=== PATIENT | female | born 1935 | race Caucasian/White ===

== ENCOUNTER 2022-01-14 19:18 | Inpatient (IN) | payer MEDICARE, OTHER ==
[~2022-01-14] VITALS: Ht 149.9 cm; Wt 64.9 kg
--- NOTE | 2022-01-14 19:00 | NUR ---
Admitted patient in ARU unit, patient alert to name, speak Arminian but understand simple Sammarinese, daughter at bedside, daughter requesting to see the medication list from [facility], and daughter picked and chose only medication that the patient taking a home, told daughter we have to notify MD on her request. Patient has a nice cath and will be discontinue tomorrow in morning, also patient has multiple bruise healing stage bruises, some from IV sites but no open wound, patient kept clean and dry, call light within reach.
[2022-01-14 20:46] VITALS: BP 131/48
[2022-01-14] MEDS ORDERED: QUET25TA PO (21:18)
[2022-01-14] MEDS ORDERED: AMAN100T PO (21:18)
[2022-01-14] MEDS ORDERED: MAGN400C PO (21:18)
[2022-01-14] MEDS ORDERED: BISA10SU61 RC (21:18)
[2022-01-14] MEDS ORDERED: MAG355OR18 PO (21:18)
[2022-01-14] MEDS ORDERED: PRAM1TAB3 PO (21:18)
[2022-01-14] MEDS ORDERED: MAGN400O6 PO (21:18)
[2022-01-14] MEDS ORDERED: ACET-2154 PO (21:18)
[2022-01-14] MEDS ORDERED: FLUC200T PO (21:18)
[2022-01-14] MEDS ORDERED: CALC1TAB95 PO (21:18)
[2022-01-14] MEDS ORDERED: ASPI-1420 PO (21:18)
[2022-01-14] MEDS ORDERED: CARB-35 PO (21:18)
[2022-01-14] MEDS ORDERED: POLY17PO4 PO (21:18)
[2022-01-14] MEDS ORDERED: ATOR20TA PO (21:35)
--- NOTE | 2022-01-14 21:45 | NUR ---
Dorota Infection disease CREDIT BALANCE SPECIALIST came and gave instructions to discontinue Zosyn IV and to continue Diflucan po for 5 days only. Daughter was notified by Dorota.
--- NOTE | 2022-01-14 23:00 | NUR ---
Dr Jesús huang the Bp meds requested by daughter, Wernervasc, and Losartan.
[2022-01-14] MEDS ORDERED: MAG HYDROX/AL HYDROX/SIMETH 30 ML LIQUID UDC PO PRN (23:15)
[2022-01-14] MEDS ORDERED: VALS1TAB2 PO (23:58)
[2022-01-14] MEDS ORDERED: GABA100C PO (23:58)
[2022-01-14] MEDS ORDERED: SENN-18 PO (23:58)
[2022-01-14] MEDS ORDERED: CARV12.5 PO (23:58)
[2022-01-15 04:10] VITALS: BP 141/49
--- NOTE | 2022-01-15 06:42 | NUR ---
Patient asleep but arousable, no complain of pain, rendered good erlin care, f/c discontinue as ordered, call light within reach. cont to monitor.
[2022-01-15 07:22] LABS: MEAN CORPUSCULAR HEMOGLOBIN 31.8 uug (24.7-32.8); MEAN CORPUSCULAR VOLUME 93.3 fL (75.5-95.3); PLATELET COUNT (AUTO) 193 K/uL (179-408)
[2022-01-15 07:30] VITALS: BP 127/40
[2022-01-15 07:43] LABS: CREATININE 0.8 mg/dL (0.6-1.3); MAGNESIUM 1.9 mg/dL (1.8-2.4); PHOSPHOROUS 3.4 mg/dL (2.5-4.9); POTASSIUM 3.7 mmol/L (3.5-5.1)
[2022-01-15] MEDS: CALCIUM CARB/VITAMIN D 600-400 MG TABLET PO SCH (08:47)
[2022-01-15] MEDS: CARBIDOPA/LEVODOPA 25-100MG TABLET PO SCH ×3 (08:47→21:56)
[2022-01-15] MEDS: PRAMIPEXOLE 1 MG TABLET PO SCH ×2 (08:48→18:07)
[2022-01-15] MEDS: FLUCONAZOLE 200 MG TABLET PO SCH (08:48)
[2022-01-15] MEDS: ASPIRIN EC 81 MG TABLET.DR PO SCH (08:48)
[2022-01-15] MEDS: AMANTADINE HCL 100 MG CAPSULE PO SCH (08:48)
[2022-01-15] MEDS: MIRALAX 17 GM POWD.PACK PO SCH (08:49)
[2022-01-15] MEDS: MAGNESIUM OXIDE 400 MG TABLET PO SCH (08:49)
[2022-01-15] MEDS ORDERED: CARBIDOPA/LEVODOPA 25-100MG TAB.RAPDIS PO SCH (09:00)
[2022-01-15] MEDS ORDERED: LOSARTAN POTASSIUM 50 MG TABLET PO SCH (09:00)
[2022-01-15] MEDS ORDERED: LOSA50TA39 PO (12:35)
[2022-01-15] MEDS ORDERED: AMLO-212 PO (14:06)
[2022-01-15] MEDS ORDERED: SITA50TA PO (14:06)
[2022-01-15] MEDS ORDERED: PIPE3.3710 IV (14:06)
[2022-01-15] MEDS ORDERED: MIRA50TA PO (14:06)
--- NOTE | 2022-01-15 14:36 | NUR ---
Med. Surg: Nursing Notes: Patient is cooperative with nursing care, compliant with physical therapy, following staff directions, ambulatory with fww and assistance, on fall precautions, continue to monitor for safety, continue with treatment plan.
[2022-01-15 16:00] VITALS: BP 147/55
[2022-01-15] MEDS: AMLODIPINE 5 MG TABLET PO SCH (18:07)
--- NOTE | 2022-01-15 19:00 | NUR ---
Patient awake, daughter at bedside, did bladder scan and result is 123 on the bladder, patient refused to urinate before scanning of the bladder, instructed daughter to encourage mother to drink more fluids as tolerate, cont to monitor.
[2022-01-15 20:00] VITALS: BP 138/49
[2022-01-15] MEDS: QUETIAPINE FUMARATE 25 MG TABLET PO SCH (21:55)
[2022-01-15] MEDS: ATORVASTATIN 20 MG TABLET PO SCH (21:55)
[2022-01-15] MEDS: LOSARTAN POTASSIUM 50 MG TABLET PO SCH (21:56)
[2022-01-15] MEDS: CARVEDILOL 12.5 MG TABLET PO SCH (21:57)
[2022-01-15] MEDS: GABAPENTIN 100 MG CAPSULE PO SCH (21:59)
--- NOTE | 2022-01-15 23:48 | NUR ---
Patient attempts to climb out of bed, assisted to the bathroom able to urinate with moderate amount of yellow color urine, assisted with erlin care, assisted back to bed, frequent visual check, cont to monitor.
[2022-01-16] MEDS: CARBIDOPA/LEVODOPA 25-100MG TABLET PO SCH ×7 (01:30→20:03)
--- NOTE | 2022-01-16 01:30 | NUR ---
Patient refused sinemet medications, gets agitated, yells and screams, reorient patient about her medications, but refused, cont to monitor.
[2022-01-16 04:00] VITALS: BP 127/52
--- NOTE | 2022-01-16 06:28 | NUR ---
Patient assisted to toilet for bladder elimination, did bladder scan resulted 263 cc, cont to monitor.
[2022-01-16 07:50] VITALS: BP 107/45
[2022-01-16] MEDS: CALCIUM CARB/VITAMIN D 600-400 MG TABLET PO SCH (08:41)
[2022-01-16] MEDS: LOSARTAN POTASSIUM 50 MG TABLET PO SCH ×2 (08:41→08:56)
[2022-01-16] MEDS: CARVEDILOL 12.5 MG TABLET PO SCH ×2 (08:42→08:56)
[2022-01-16] MEDS: GABAPENTIN 100 MG CAPSULE PO SCH ×2 (08:42→17:48)
[2022-01-16] MEDS: ASPIRIN EC 81 MG TABLET.DR PO SCH (08:42)
[2022-01-16] MEDS: PRAMIPEXOLE 1 MG TABLET PO SCH ×2 (08:42→17:48)
[2022-01-16] MEDS: MYRBETRIQ 50 MG PO SCH (08:50)
[2022-01-16] MEDS: AMANTADINE HCL 100 MG CAPSULE PO SCH (08:50)
[2022-01-16] MEDS: [UNRECOGNIZED DRUG - OTHER] PO SCH (08:50)
[2022-01-16] MEDS: FLUCONAZOLE 200 MG TABLET PO SCH (08:50)
[2022-01-16] MEDS: MAGNESIUM OXIDE 400 MG TABLET PO SCH (08:51)
[2022-01-16] MEDS ORDERED: MYRBETRIQ 50 MG PO SCH (09:00)
[2022-01-16] MEDS ORDERED: [UNRECOGNIZED DRUG - OTHER] PO SCH (09:00)
[2022-01-16] MEDS ORDERED: Medication Not On Formulary EA (Mirabegron (Myrbetriq) 50 MG) PO SCH (09:00)
[2022-01-16] MEDS: MIRALAX 17 GM POWD.PACK PO SCH (09:14)
--- NOTE | 2022-01-16 13:32 | NUR ---
INTERDISCIPLINARY TEAM CONFERENCE
[2022-01-16 15:50] VITALS: BP 109/40
--- NOTE | 2022-01-16 16:59 | NUR ---
0730-Rec'd patient in bed, awake, able to answer short/simple questions, patient in no acute respiratory distress, on R/A and dannie well. No c/o pain. Bed at low position, bed alarm on. Call light at reach. 0900-Scheduled/due medications administered as ordered, no ASE noted, oral fluids taken well. CG at bedside. 0930-Patient was assisted to use the restroom and voided with no difficulties, patient denied bladder discomfort. Continues on oral atb for uti, no hematuria or foul urine odor. 0950-Bladder scan done to check urinary residual and obtained 116cc result. bladder is soft and non distended. Patient denies any discomfort. 1100-Assisted patient with ADLs and as needed, care provided at routine intervals. Routine rounds and frequent visual checks done. 0320PM-assisted patient to the restroom and patient had a BM, soft formed and voided. 3:55pm-Bladder scan done with 135cc, patient with no c/o bladder discomfort. 5:50PM-Assisted to use the restroom and voided with no difficulties.
[2022-01-16] MEDS: AMLODIPINE 5 MG TABLET PO SCH ×2 (17:50→17:51)
[2022-01-16 20:00] VITALS: BP 111/62
[2022-01-16] MEDS: ATORVASTATIN 20 MG TABLET PO SCH (20:44)
[2022-01-16] MEDS: QUETIAPINE FUMARATE 25 MG TABLET PO SCH (20:44)
--- NOTE | 2022-01-16 21:40 | NUR ---
Bladder scan for post void residual done with result 43cc, no c/o blader discomfort.
[2022-01-17] MEDS: CARBIDOPA/LEVODOPA 25-100MG TABLET PO SCH ×7 (00:14→23:31)
--- NOTE | 2022-01-17 04:00 | NUR ---
Assisted to the bathroom, voided freely without any discomfort. Post void BS result 236 ml.
[2022-01-17 04:40] VITALS: BP 120/52
--- NOTE | 2022-01-17 07:00 | NUR ---
Bladder scan done with 161ML residual.
[2022-01-17 07:42] VITALS: BP 115/97
[2022-01-17] MEDS: CARVEDILOL 12.5 MG TABLET PO SCH (08:13)
[2022-01-17] MEDS: CALCIUM CARB/VITAMIN D 600-400 MG TABLET PO SCH (08:13)
[2022-01-17] MEDS: ASPIRIN EC 81 MG TABLET.DR PO SCH (08:13)
[2022-01-17] MEDS: PRAMIPEXOLE 1 MG TABLET PO SCH ×2 (08:13→16:29)
[2022-01-17] MEDS: GABAPENTIN 100 MG CAPSULE PO SCH ×2 (08:13→16:29)
[2022-01-17] MEDS: LOSARTAN POTASSIUM 50 MG TABLET PO SCH (08:14)
[2022-01-17] MEDS: MIRALAX 17 GM POWD.PACK PO SCH (08:15)
[2022-01-17] MEDS: MAGNESIUM OXIDE 400 MG TABLET PO SCH (08:15)
[2022-01-17] MEDS: AMANTADINE HCL 100 MG CAPSULE PO SCH (08:16)
[2022-01-17] MEDS: MYRBETRIQ 50 MG PO SCH (08:17)
[2022-01-17] MEDS: [UNRECOGNIZED DRUG - OTHER] PO SCH (08:17)
[2022-01-17] MEDS: FLUCONAZOLE 200 MG TABLET PO SCH (08:17)
[2022-01-17] MEDS ORDERED: CARVEDILOL 12.5 MG TABLET PO SCH (09:00)
--- NOTE | 2022-01-17 14:28 | NUR ---
INDIVIDUALIZED PLAN OF CARE
--- NOTE | 2022-01-17 14:50 | NUR ---
0715:Rec'd patient in bed, awake, VSS, no c/o pain. No physical or respiratory distress noted. Safety measures and call light at reach. 0900-Scheduled/due medications administered as ordered by MD with no ASE noted. Patient took all pills and swallow with no difficulty. Oral fluids taken well. 11:30: Bladder scan done with 213 cc urine residual, bladder is soft and non distended; patient denies any pain or bladder discomfort. 11:45:Assisted patient to the restroom and had a small formed BM and able to urinate with no difficulty. Care provided and patient was taken to the rehab room for her therapy. 2:40pm-Patient was assisted to the restroom and had another small soft formed BM and urinated freely, no hematuria or C/O dysuria.
[2022-01-17 15:05] VITALS: BP 133/44
--- NOTE | 2022-01-17 16:42 | NUR ---
4:00PM-Bladder scan done at this time with 22cc urine residual, patient denies bladder discomfort, daughter (Andrews) at bedside and aware.
[2022-01-17] MEDS ORDERED: CARVEDILOL 6.25 MG TABLET PO SCH (18:00)
--- NOTE | 2022-01-17 18:21 | NUR ---
Obtained orders from Dr. Monet to discontinue current medication order Coreg. Order noted and carried out. Daughter Andrews was informed.
[2022-01-17 20:00] VITALS: BP 98/65
[2022-01-17] MEDS: QUETIAPINE FUMARATE 25 MG TABLET PO SCH (20:06)
[2022-01-17] MEDS: ATORVASTATIN 20 MG TABLET PO SCH (20:06)
[2022-01-18] MEDS: CARBIDOPA/LEVODOPA 25-100MG TABLET PO SCH ×6 (03:54→23:54)
[2022-01-18 04:00] VITALS: BP 130/47
--- NOTE | 2022-01-18 04:12 | NUR ---
01/17/22: Due medication administered as ordered; patient cooperative with care/treatment, oral fluids encouraged as dannie. and taken well. Routine round/care provided, assisted to the restroom as needed. Repositioned to promote comfort and facilitate pressure relief. Safety measures in place and call light at reach; bed alarm on and in function order. 01/18/22: Patient sleeping comfortably, no respiratory distress/use of accessory muscles noted, on R/A, able to wake up on verbal commands; due medication administered as ordered. Oral fluids encouraged and taken well. Bladder scan done at this time with 179cc urine residual, bladder is soft and nondistended; patient denies bladder discomfort or pain. Routine rounds and care provided with frequent visual checks to ensure safety. All needs anticipated and met.
--- NOTE | 2022-01-18 06:45 | NUR ---
0640-Assisted patient to the restroom and voided freely. Patient denies bladder discomfort. No hematuria noted; good perineal care provided.
[2022-01-18 07:36] VITALS: BP 127/49
[2022-01-18] MEDS: LOSARTAN POTASSIUM 50 MG TABLET PO SCH (10:02)
[2022-01-18] MEDS: CALCIUM CARB/VITAMIN D 600-400 MG TABLET PO SCH (10:03)
[2022-01-18] MEDS: ASPIRIN EC 81 MG TABLET.DR PO SCH (10:03)
[2022-01-18] MEDS: MAGNESIUM OXIDE 400 MG TABLET PO SCH (10:03)
[2022-01-18] MEDS: GABAPENTIN 100 MG CAPSULE PO SCH ×2 (10:03→15:55)
[2022-01-18] MEDS: PRAMIPEXOLE 1 MG TABLET PO SCH ×2 (10:03→15:55)
[2022-01-18] MEDS: MIRALAX 17 GM POWD.PACK PO SCH (10:04)
[2022-01-18] MEDS: MYRBETRIQ 50 MG PO SCH (10:06)
[2022-01-18] MEDS: AMANTADINE HCL 100 MG CAPSULE PO SCH (10:06)
[2022-01-18] MEDS: FLUCONAZOLE 200 MG TABLET PO SCH (10:06)
[2022-01-18] MEDS: [UNRECOGNIZED DRUG - OTHER] PO SCH (10:06)
[2022-01-18] MEDS: GLUCERNA SHAKE 237 ML CAN PO SCH ×2 (12:53→15:55)
[2022-01-18 15:09] VITALS: BP 110/46
[2022-01-18 20:00] VITALS: BP 105/25
[2022-01-18] MEDS: ATORVASTATIN 20 MG TABLET PO SCH (20:23)
[2022-01-18] MEDS: QUETIAPINE FUMARATE 25 MG TABLET PO SCH (20:23)
[2022-01-19 04:00] VITALS: BP 119/80
[2022-01-19] MEDS: CARBIDOPA/LEVODOPA 25-100MG TABLET PO SCH ×5 (04:02→20:37)
--- NOTE | 2022-01-19 07:34 | NUR ---
Rec'd in bed awake, having some snacks that were brought from home, skin discoloration to right eye/temporal area and other parts of the body still visible and fading away; Patient ambulates with FWW and one person assist, assisted to the restroom and voided freely, patient denied bladder discomfort. No hematuria noted; assisted with perineal care and back to her bed safely at this time. Bed at low position, call light at reach and reminded to please use it every time help is needed.
[2022-01-19] MEDS: PRAMIPEXOLE 1 MG TABLET PO SCH ×2 (08:12→16:50)
[2022-01-19] MEDS: GABAPENTIN 100 MG CAPSULE PO SCH ×2 (08:12→16:48)
[2022-01-19] MEDS: MYRBETRIQ 50 MG PO SCH (08:13)
[2022-01-19] MEDS: MAGNESIUM OXIDE 400 MG TABLET PO SCH (08:13)
[2022-01-19] MEDS: CALCIUM CARB/VITAMIN D 600-400 MG TABLET PO SCH (08:13)
[2022-01-19] MEDS: [UNRECOGNIZED DRUG - OTHER] PO SCH (08:13)
[2022-01-19] MEDS: ASPIRIN EC 81 MG TABLET.DR PO SCH (08:13)
[2022-01-19] MEDS: GLUCERNA SHAKE 237 ML CAN PO SCH ×2 (08:14→17:17)
[2022-01-19] MEDS: AMANTADINE HCL 100 MG CAPSULE PO SCH (08:14)
[2022-01-19] MEDS: MIRALAX 17 GM POWD.PACK PO SCH (08:14)
[2022-01-19] MEDS: FLUCONAZOLE 200 MG TABLET PO SCH (08:14)
[2022-01-19] MEDS: LOSARTAN POTASSIUM 50 MG TABLET PO SCH (08:26)
[2022-01-19 08:27] VITALS: BP 140/54
--- NOTE | 2022-01-19 11:28 | NUR ---
1030-Patient OOB with rehab for her therapy, patient denies pain, daughter by her side.
[2022-01-19 15:01] VITALS: BP 132/45
--- NOTE | 2022-01-19 18:19 | NUR ---
1800-Assisted patient with feeding, able to consumed 50% of her dinner, oral fluids taken well, no swallowing problems noted. Patient tolerated dinner well, no C/O GI discomfort, no N/V noted; Assisted patient to the restroom and had a medium soft formed BM, voided freely. No c/o bladder discomfort. Patient continues on oral ATB for UTI with no A/R noted. All needs anticipated and met. Safety measures in place and call light at reach.
[2022-01-19 20:00] VITALS: BP 130/46
[2022-01-19] MEDS: QUETIAPINE FUMARATE 25 MG TABLET PO SCH (20:37)
[2022-01-19] MEDS: ATORVASTATIN 20 MG TABLET PO SCH (20:37)
[2022-01-20] MEDS: CARBIDOPA/LEVODOPA 25-100MG TABLET PO SCH ×7 (00:06→23:12)
[2022-01-20 04:00] VITALS: BP 126/44
--- NOTE | 2022-01-20 05:22 | NUR ---
RECEIVED REPORT FROM AM NURSE CARRILLO PT IS ALERT IS ALERT AND ORIENTED BUT HAS TENDENCY GET OUT OF BED WITHOUT ASKING FOR ASSISTANCE SO SITTING BY PT ROOM. PT WAS GIVEN MEDICATION ORDERED NO ADVERSE REACTION NOTED. PT NEEDS ARE BEING MET WILL AND FALL SAFETY PRECAUTION MAINTAINED. PT DENIES PAIN THROUGHOUT SHIFT.
[2022-01-20 08:00] VITALS: BP 122/48
[2022-01-20] MEDS: LOSARTAN POTASSIUM 50 MG TABLET PO SCH (09:00)
[2022-01-20] MEDS: PRAMIPEXOLE 1 MG TABLET PO SCH ×2 (09:10→16:32)
[2022-01-20] MEDS: ASPIRIN EC 81 MG TABLET.DR PO SCH (09:10)
[2022-01-20] MEDS: GABAPENTIN 100 MG CAPSULE PO SCH ×2 (09:10→16:32)
[2022-01-20] MEDS: MYRBETRIQ 50 MG PO SCH (09:10)
[2022-01-20] MEDS: [UNRECOGNIZED DRUG - OTHER] PO SCH (09:10)
[2022-01-20] MEDS: AMANTADINE HCL 100 MG CAPSULE PO SCH (09:10)
[2022-01-20] MEDS: CALCIUM CARB/VITAMIN D 600-400 MG TABLET PO SCH (09:10)
[2022-01-20] MEDS: MAGNESIUM OXIDE 400 MG TABLET PO SCH (09:10)
[2022-01-20] MEDS: MIRALAX 17 GM POWD.PACK PO SCH (09:11)
[2022-01-20] MEDS: GLUCERNA SHAKE 237 ML CAN PO SCH ×2 (09:11→16:37)
--- NOTE | 2022-01-20 11:12 | NUR ---
PATIENT DAUGHTER REQUESTED FOR A ROOM WHERE THE AIR CONDITIONER WAS FUNCTIONAL. RN NOTIFIED CHARGE NURSE. CHARGE NURSE AND RN MOVED PATIENT FROM [phone] TO [phone].
[2022-01-20 15:56] VITALS: BP 132/63
[2022-01-20 20:00] VITALS: BP 122/47
[2022-01-20] MEDS: QUETIAPINE FUMARATE 25 MG TABLET PO SCH (20:20)
[2022-01-20] MEDS: ATORVASTATIN 20 MG TABLET PO SCH (20:21)
[2022-01-21] MEDS: CARBIDOPA/LEVODOPA 25-100MG TABLET PO SCH ×5 (03:38→20:09)
[2022-01-21 04:00] VITALS: BP 124/48
[2022-01-21 07:59] VITALS: BP 128/51
[2022-01-21] MEDS: GLUCERNA SHAKE 237 ML CAN PO SCH ×2 (08:00→17:25)
[2022-01-21] MEDS: CALCIUM CARB/VITAMIN D 600-400 MG TABLET PO SCH (08:55)
[2022-01-21] MEDS: PRAMIPEXOLE 1 MG TABLET PO SCH ×2 (08:55→17:24)
[2022-01-21] MEDS: MAGNESIUM OXIDE 400 MG TABLET PO SCH (08:55)
[2022-01-21] MEDS: ASPIRIN EC 81 MG TABLET.DR PO SCH (08:55)
[2022-01-21] MEDS: MIRALAX 17 GM POWD.PACK PO SCH (08:57)
[2022-01-21] MEDS: LOSARTAN POTASSIUM 50 MG TABLET PO SCH (09:00)
[2022-01-21] MEDS: MYRBETRIQ 50 MG PO SCH (09:07)
[2022-01-21] MEDS: [UNRECOGNIZED DRUG - OTHER] PO SCH (09:07)
[2022-01-21] MEDS: AMANTADINE HCL 100 MG CAPSULE PO SCH (09:08)
[2022-01-21] MEDS: GABAPENTIN 100 MG CAPSULE PO SCH ×2 (09:10→17:24)
[2022-01-21] MEDS: MAGNESIUM HYDROXIDE 30 ML LIQUID UDC PO PRN (13:55)
[2022-01-21 16:08] VITALS: BP 110/38
[2022-01-21 20:00] VITALS: BP 144/51
[2022-01-21] MEDS: QUETIAPINE FUMARATE 25 MG TABLET PO SCH (20:09)
[2022-01-21] MEDS: ATORVASTATIN 20 MG TABLET PO SCH (20:09)
[2022-01-22] MEDS: CARBIDOPA/LEVODOPA 25-100MG TABLET PO SCH ×6 (00:26→19:55)
[2022-01-22 04:00] VITALS: BP 95/69
[2022-01-22 08:00] VITALS: BP 136/41
[2022-01-22] MEDS: GLUCERNA SHAKE 237 ML CAN PO SCH ×2 (08:12→16:50)
[2022-01-22] MEDS: PRAMIPEXOLE 1 MG TABLET PO SCH ×2 (08:55→16:46)
[2022-01-22] MEDS: MYRBETRIQ 50 MG PO SCH (08:55)
[2022-01-22] MEDS: GABAPENTIN 100 MG CAPSULE PO SCH ×2 (08:55→16:46)
[2022-01-22] MEDS: ASPIRIN EC 81 MG TABLET.DR PO SCH (08:55)
[2022-01-22] MEDS: AMANTADINE HCL 100 MG CAPSULE PO SCH (08:55)
[2022-01-22] MEDS: CALCIUM CARB/VITAMIN D 600-400 MG TABLET PO SCH (08:55)
[2022-01-22] MEDS: [UNRECOGNIZED DRUG - OTHER] PO SCH (08:55)
[2022-01-22] MEDS: LOSARTAN POTASSIUM 50 MG TABLET PO SCH (08:59)
[2022-01-22] MEDS: MIRALAX 17 GM POWD.PACK PO SCH (09:00)
[2022-01-22] MEDS: MAGNESIUM OXIDE 400 MG TABLET PO SCH (09:00)
[2022-01-22 15:46] VITALS: BP 129/51
[2022-01-22 20:00] VITALS: BP 116/49
[2022-01-22] MEDS: QUETIAPINE FUMARATE 25 MG TABLET PO SCH (21:05)
[2022-01-22] MEDS: ATORVASTATIN 20 MG TABLET PO SCH (21:05)
[2022-01-23] MEDS: CARBIDOPA/LEVODOPA 25-100MG TABLET PO SCH ×6 (00:10→20:03)
[2022-01-23 04:00] VITALS: BP 125/48
[2022-01-23 08:00] VITALS: BP 124/45
[2022-01-23] MEDS: CALCIUM CARB/VITAMIN D 600-400 MG TABLET PO SCH (08:26)
[2022-01-23] MEDS: GABAPENTIN 100 MG CAPSULE PO SCH ×2 (08:27→16:11)
[2022-01-23] MEDS: PRAMIPEXOLE 1 MG TABLET PO SCH ×2 (08:27→16:11)
[2022-01-23] MEDS: MAGNESIUM OXIDE 400 MG TABLET PO SCH (08:27)
[2022-01-23] MEDS: ASPIRIN EC 81 MG TABLET.DR PO SCH (08:27)
[2022-01-23] MEDS: MYRBETRIQ 50 MG PO SCH (08:28)
[2022-01-23] MEDS: AMANTADINE HCL 100 MG CAPSULE PO SCH (08:28)
[2022-01-23] MEDS: [UNRECOGNIZED DRUG - OTHER] PO SCH (08:28)
[2022-01-23] MEDS: GLUCERNA SHAKE 237 ML CAN PO SCH ×2 (08:28→17:40)
[2022-01-23] MEDS: LOSARTAN POTASSIUM 50 MG TABLET PO SCH (08:31)
[2022-01-23] MEDS: MIRALAX 17 GM POWD.PACK PO SCH (08:32)
[2022-01-23] MEDS: ACETAMINOPHEN 325 MG TABLET PO PRN (13:10)
--- NOTE | 2022-01-23 15:17 | NUR ---
INTERDISCIPLINARY TEAM CONFERENCE
[2022-01-23 16:00] VITALS: BP 135/46
--- NOTE | 2022-01-23 18:21 | NUR ---
Patient alert to self, able to follow simple directions, Macedonian speaking, able to make simple needs known, (provided medical translator). Patient requires of one person assist with personal care/hygiene. Ambulates with assist and a FWW device; patient at high risk for falls and self injury due to poor cognitive awareness, has with unsteady gait, poor coordination/balance control and poor body posture, history of multiple falls and Parkinson's DSE; patient has hx of scoliosis as well. Patient with tendency to get OOB unassisted and does not uses call light for help despite multiple reminders provided., Caught patient on time several episodes and able to get there promptly and assist patient timely; bed alarm functioning properly and sounding every time patient gets up. Patient with periods of confusion and forgetful, redirect as needed with help. Assisted patient to the restroom several times during the day/shift, voided well and denied any bladder discomfort. Patient also had a bowel movement, soft formed. Routine rounds/care provided, frequent visual checks done. All needs anticipated and met. Daughter visited patient today late in the shift, took some clothing to wash, signed off inventory list/updated.
[2022-01-23 20:00] VITALS: BP 121/58
[2022-01-23] MEDS: ATORVASTATIN 20 MG TABLET PO SCH (21:00)
[2022-01-23] MEDS: QUETIAPINE FUMARATE 25 MG TABLET PO SCH (21:00)
[2022-01-24] MEDS: CARBIDOPA/LEVODOPA 25-100MG TABLET PO SCH ×7 (00:03→21:20)
[2022-01-24 04:00] VITALS: BP 122/58
[2022-01-24 07:52] VITALS: BP 116/41
[2022-01-24] MEDS: LOSARTAN POTASSIUM 50 MG TABLET PO SCH (09:10)
[2022-01-24] MEDS: CALCIUM CARB/VITAMIN D 600-400 MG TABLET PO SCH (09:10)
[2022-01-24] MEDS: ASPIRIN EC 81 MG TABLET.DR PO SCH (09:11)
[2022-01-24] MEDS: AMANTADINE HCL 100 MG CAPSULE PO SCH (09:11)
[2022-01-24] MEDS: PRAMIPEXOLE 1 MG TABLET PO SCH ×2 (09:11→16:31)
[2022-01-24] MEDS: MAGNESIUM OXIDE 400 MG TABLET PO SCH (09:11)
[2022-01-24] MEDS: GABAPENTIN 100 MG CAPSULE PO SCH ×2 (09:11→16:31)
[2022-01-24] MEDS: MIRALAX 17 GM POWD.PACK PO SCH (09:11)
[2022-01-24] MEDS: MYRBETRIQ 50 MG PO SCH (09:12)
[2022-01-24] MEDS: [UNRECOGNIZED DRUG - OTHER] PO SCH (09:12)
[2022-01-24] MEDS: GLUCERNA SHAKE 237 ML CAN PO SCH ×2 (09:12→17:07)
[2022-01-24 15:32] VITALS: BP 119/44
--- NOTE | 2022-01-24 18:07 | NUR ---
Patient continues within her usual baseline, no changes noted; denies pain or discomfort. Patient compliant with treatment, cooperative with care and staff. Continues under rehab for PT/OT skilled services. Patient actively able to participate in therapy; fall precautions observed, assisted with ADLs and at all times. Multiple skin discoloration in different areas of the body fading away/improving, no skin tears noted. Handled gently and carefully during care. All needs attended well and met.
[2022-01-24 20:00] VITALS: BP 105/49
[2022-01-24] MEDS: QUETIAPINE FUMARATE 25 MG TABLET PO SCH (21:21)
[2022-01-24] MEDS: ATORVASTATIN 20 MG TABLET PO SCH (21:21)
[2022-01-24] MEDS: ACETAMINOPHEN 325 MG TABLET PO PRN (21:31)
[2022-01-25 04:00] VITALS: BP 113/58
[2022-01-25] MEDS: CARBIDOPA/LEVODOPA 25-100MG TABLET PO SCH ×5 (04:00→20:00)
[2022-01-25 06:21] LABS: HEMATOCRIT 37.6 % (31.2-41.9); MEAN CORPUSCULAR HEMOGLOBIN 31.3 uug (24.7-32.8); MEAN CORPUSCULAR VOLUME 94.3 fL (75.5-95.3); PLATELET COUNT (AUTO) 221 K/uL (179-408)
[2022-01-25 06:51] LABS: CREATININE 0.9 mg/dL (0.6-1.3); MAGNESIUM 2.3 mg/dL (1.8-2.4); PHOSPHOROUS 3.9 mg/dL (2.5-4.9); POTASSIUM 4.4 mmol/L (3.5-5.1)
[2022-01-25 08:10] VITALS: BP 136/82
[2022-01-25] MEDS: CALCIUM CARB/VITAMIN D 600-400 MG TABLET PO SCH (08:45)
[2022-01-25] MEDS: PRAMIPEXOLE 1 MG TABLET PO SCH ×2 (08:45→16:49)
[2022-01-25] MEDS: ASPIRIN EC 81 MG TABLET.DR PO SCH (08:45)
[2022-01-25] MEDS: MAGNESIUM OXIDE 400 MG TABLET PO SCH (08:45)
[2022-01-25] MEDS: MYRBETRIQ 50 MG PO SCH (08:46)
[2022-01-25] MEDS: AMANTADINE HCL 100 MG CAPSULE PO SCH (08:46)
[2022-01-25] MEDS: GABAPENTIN 100 MG CAPSULE PO SCH ×2 (08:46→16:49)
[2022-01-25] MEDS: [UNRECOGNIZED DRUG - OTHER] PO SCH (08:46)
[2022-01-25] MEDS: MIRALAX 17 GM POWD.PACK PO SCH (08:47)
[2022-01-25] MEDS ORDERED: LOSARTAN POTASSIUM 50 MG TABLET PO SCH (09:00)
[2022-01-25] MEDS: ACETAMINOPHEN 325 MG TABLET PO PRN (09:01)
[2022-01-25] MEDS: GLUCERNA SHAKE 237 ML CAN PO SCH ×2 (09:09→16:49)
[2022-01-25] MEDS: LOSARTAN POTASSIUM 25 MG TABLET PO SCH (09:28)
--- NOTE | 2022-01-25 15:27 | NUR ---
Patient received in hospital bed awake with pcg at her bedside. No pain nor discomfort noted. She is breathing normal on room air. No acute distress noted. She is calm and relaxed at this time. Respiration unlabored with saturations in the mid 90s. She was able to ambulate with PT today on FWW, able to walk 300 feet. Bm noted today. Patient is DNR/ comfort measures. No known allergies on CCHO 60 gms/cardio. Patient came in S/P fall B/L rib fracture. Acute Metabolic encephalopathy. Two Tylenol administered for lower leg pain. Pain was reassess with relief. No new concerns reported. Sn, will continue to monitor on same plan of care.
[2022-01-25 15:59] VITALS: BP 146/51
[2022-01-25 19:58] VITALS: BP 119/55
[2022-01-25] MEDS: QUETIAPINE FUMARATE 25 MG TABLET PO SCH (21:00)
[2022-01-25] MEDS: ATORVASTATIN 20 MG TABLET PO SCH (21:00)
[2022-01-26 04:00] VITALS: BP 123/77
[2022-01-26] MEDS: CARBIDOPA/LEVODOPA 25-100MG TABLET PO SCH ×7 (04:00→23:57)
--- NOTE | 2022-01-26 06:00 | NUR ---
[id number] CONT. WITH STABLE VS. PT HAS BEEN SLEEPING THROUGH MOST OF THE NIGHT. AM CARE GIVEN. PT IS A/OX3 WHEN AWAKE. PT HAS DNR STATUS. PT ENDORSED TO DAYSPARISH LEYVA RN
[2022-01-26 07:17] LABS: HEMATOCRIT 38.7 % (31.2-41.9); MEAN CORPUSCULAR HEMOGLOBIN 32.1 uug (24.7-32.8); MEAN CORPUSCULAR VOLUME 93.4 fL (75.5-95.3); PLATELET COUNT (AUTO) 225 K/uL (179-408)
[2022-01-26 07:40] LABS: CREATININE 0.9 mg/dL (0.6-1.3); MAGNESIUM 2.4 mg/dL (1.8-2.4); PHOSPHOROUS 3.7 mg/dL (2.5-4.9); POTASSIUM 4.1 mmol/L (3.5-5.1)
[2022-01-26 08:42] VITALS: BP 133/44
[2022-01-26] MEDS: GABAPENTIN 100 MG CAPSULE PO SCH ×2 (08:58→17:00)
[2022-01-26] MEDS: ASPIRIN EC 81 MG TABLET.DR PO SCH (08:58)
[2022-01-26] MEDS: MIRALAX 17 GM POWD.PACK PO SCH (08:58)
[2022-01-26] MEDS: CALCIUM CARB/VITAMIN D 600-400 MG TABLET PO SCH (08:58)
[2022-01-26] MEDS: MAGNESIUM HYDROXIDE 30 ML LIQUID UDC PO PRN (08:58)
[2022-01-26] MEDS: PRAMIPEXOLE 1 MG TABLET PO SCH ×2 (08:58→17:00)
[2022-01-26] MEDS: MAGNESIUM OXIDE 400 MG TABLET PO SCH (08:58)
[2022-01-26] MEDS: [UNRECOGNIZED DRUG - OTHER] PO SCH ×2 (09:00→09:33)
[2022-01-26] MEDS: MYRBETRIQ 50 MG PO SCH ×2 (09:00→09:33)
[2022-01-26] MEDS: LOSARTAN POTASSIUM 25 MG TABLET PO SCH (09:00)
[2022-01-26] MEDS: GLUCERNA SHAKE 237 ML CAN PO SCH ×2 (09:00→17:01)
[2022-01-26] MEDS: AMANTADINE HCL 100 MG CAPSULE PO SCH (09:36)
[2022-01-26 16:00] VITALS: BP 138/54
[2022-01-26] MEDS: LOPERAMIDE HCL 2 MG CAPSULE PO ONE ×2 (16:15→16:20)
--- NOTE | 2022-01-26 17:29 | NUR ---
Patient at this time is comfortable. She is A&Ox2, Farsi speaking. Breathing normal on room air. No acute distress noted. Respiration even, unlabored. She uses the walker with assist to the bathroom. Pt is stable with no new concerns. Will continue to monitor.
[2022-01-26] MEDS: QUETIAPINE FUMARATE 25 MG TABLET PO SCH (20:07)
[2022-01-26] MEDS: ATORVASTATIN 20 MG TABLET PO SCH (20:07)
[2022-01-26 20:32] VITALS: BP 146/58
[2022-01-27] MEDS: CARBIDOPA/LEVODOPA 25-100MG TABLET PO SCH ×6 (04:04→23:02)
[2022-01-27 04:40] VITALS: BP 147/52
--- NOTE | 2022-01-27 06:54 | NUR ---
Patient in bed at this time, AAOx2, BRP with FWW, room air, no c/o pain noted, call light within easy reach.
[2022-01-27 07:14] LABS: HEMATOCRIT 37.5 % (31.2-41.9); MEAN CORPUSCULAR HEMOGLOBIN 31.4 uug (24.7-32.8); MEAN CORPUSCULAR VOLUME 93.5 fL (75.5-95.3); PLATELET COUNT (AUTO) 207 K/uL (179-408)
[2022-01-27 07:28] LABS: CREATININE 0.9 mg/dL (0.6-1.3); MAGNESIUM 2.5 mg/dL (1.8-2.4); PHOSPHOROUS 3.6 mg/dL (2.5-4.9); POTASSIUM 3.9 mmol/L (3.5-5.1)
[2022-01-27 07:47] VITALS: BP 133/51
[2022-01-27 08:00] VITALS: BP 133/51
[2022-01-27] MEDS: PRAMIPEXOLE 1 MG TABLET PO SCH ×2 (09:23→17:05)
[2022-01-27] MEDS: MAGNESIUM OXIDE 400 MG TABLET PO SCH (09:23)
[2022-01-27] MEDS: CALCIUM CARB/VITAMIN D 600-400 MG TABLET PO SCH (09:24)
[2022-01-27] MEDS: GABAPENTIN 100 MG CAPSULE PO SCH ×2 (09:24→17:06)
[2022-01-27] MEDS: LOSARTAN POTASSIUM 25 MG TABLET PO SCH (09:24)
[2022-01-27] MEDS: AMANTADINE HCL 100 MG CAPSULE PO SCH (09:24)
[2022-01-27] MEDS: ASPIRIN EC 81 MG TABLET.DR PO SCH (09:26)
[2022-01-27] MEDS: GLUCERNA SHAKE 237 ML CAN PO SCH ×2 (09:26→17:06)
[2022-01-27] MEDS: MIRALAX 17 GM POWD.PACK PO SCH (09:26)
[2022-01-27 15:12] VITALS: BP 137/46
[2022-01-27 20:00] VITALS: BP 137/52
[2022-01-27] MEDS: ATORVASTATIN 20 MG TABLET PO SCH (20:07)
[2022-01-27] MEDS: QUETIAPINE FUMARATE 25 MG TABLET PO SCH (20:07)
[2022-01-28] VITALS: BP 127/51
[2022-01-28] MEDS: CARBIDOPA/LEVODOPA 25-100MG TABLET PO SCH ×5 (03:20→20:47)
[2022-01-28 04:00] VITALS: BP 139/52
[2022-01-28 07:37] VITALS: BP 117/49
[2022-01-28] MEDS: MAGNESIUM HYDROXIDE 30 ML LIQUID UDC PO PRN (08:45)
[2022-01-28] MEDS: GABAPENTIN 100 MG CAPSULE PO SCH ×2 (08:45→16:56)
[2022-01-28] MEDS: MIRALAX 17 GM POWD.PACK PO SCH (08:45)
[2022-01-28] MEDS: ASPIRIN EC 81 MG TABLET.DR PO SCH (08:45)
[2022-01-28] MEDS: PRAMIPEXOLE 1 MG TABLET PO SCH ×2 (08:45→16:52)
[2022-01-28] MEDS: MAGNESIUM OXIDE 400 MG TABLET PO SCH (08:45)
[2022-01-28] MEDS: CALCIUM CARB/VITAMIN D 600-400 MG TABLET PO SCH (08:45)
[2022-01-28] MEDS: [UNRECOGNIZED DRUG - OTHER] PO SCH (08:46)
[2022-01-28] MEDS: GLUCERNA SHAKE 237 ML CAN PO SCH ×2 (08:46→16:53)
[2022-01-28] MEDS: LOSARTAN POTASSIUM 25 MG TABLET PO SCH (08:46)
[2022-01-28] MEDS: MYRBETRIQ 50 MG PO SCH (08:46)
[2022-01-28] MEDS: AMANTADINE HCL 100 MG CAPSULE PO SCH (08:47)
[2022-01-28 16:34] VITALS: BP 123/48
--- NOTE | 2022-01-28 17:33 | NUR ---
Patient found in bed awake with PCG by her bedside. She is Farsi speaking. She appears to be weak today. Patient unable to walk with PT during the morning hour, however, she was able to walk few steps in the afternoon. Patient labs are all within normal limit. She is breathing normal on room air with no acute distress. No c/o pain during my shift. Patient is stable. Daughter called with updates.
[2022-01-28 20:00] VITALS: BP 120/42
[2022-01-28] MEDS: QUETIAPINE FUMARATE 25 MG TABLET PO SCH (20:47)
[2022-01-28] MEDS: ATORVASTATIN 20 MG TABLET PO SCH (20:47)
[2022-01-29] MEDS: CARBIDOPA/LEVODOPA 25-100MG TABLET PO SCH ×5 (00:32→16:37)
[2022-01-29 04:00] VITALS: BP 119/75
--- NOTE | 2022-01-29 04:00 | NUR ---
PATIENT IS ALERT COOPERATIVE AND ABLE TO MAKE NEEDS KNOWN DENIES PAIN OR DISCOMFORTS CONTINUE WITH MEDICATIONS ORDERED ASSISTED TO THE BATHROOM AMBULATED WITH THE FRONT WHEEL WALKER VOIDING WELL CONTINUE ON SINEMET ORDERED SLEPT AT LONG INTERVALS NOT IN DISTRESS AT THIS TIME WILL CONTINUE TO OBSERVE
[2022-01-29 07:46] VITALS: BP 145/21
[2022-01-29] MEDS: MIRALAX 17 GM POWD.PACK PO SCH ×2 (09:00→09:07)
[2022-01-29] MEDS: PRAMIPEXOLE 1 MG TABLET PO SCH (09:06)
[2022-01-29] MEDS: LOSARTAN POTASSIUM 25 MG TABLET PO SCH (09:06)
[2022-01-29] MEDS: MAGNESIUM OXIDE 400 MG TABLET PO SCH (09:06)
[2022-01-29] MEDS: GABAPENTIN 100 MG CAPSULE PO SCH (09:06)
[2022-01-29] MEDS: CALCIUM CARB/VITAMIN D 600-400 MG TABLET PO SCH (09:06)
[2022-01-29] MEDS: GLUCERNA SHAKE 237 ML CAN PO SCH (09:07)
[2022-01-29] MEDS: ASPIRIN EC 81 MG TABLET.DR PO SCH (09:07)
[2022-01-29] MEDS: [UNRECOGNIZED DRUG - OTHER] PO SCH (09:07)
[2022-01-29] MEDS: AMANTADINE HCL 100 MG CAPSULE PO SCH (09:07)
[2022-01-29] MEDS: MYRBETRIQ 50 MG PO SCH (09:07)
--- NOTE | 2022-01-29 14:52 | NUR ---
Received discharge order to home with home health from Dr. Walters.
[2022-01-29 15:58] VITALS: BP 149/56
--- NOTE | 2022-01-29 16:40 | NUR ---
Discharge instructions given to patient's daughter Sosseshy with verbalized understanding. Discharge papers signed by and given to the daughter. All belongings well accounted for and given to the patient including her own home medication. Assisted with her needs. Patient remains alert, not in any form of distress, on room air. Vital signs stable. Discharge medications faxed to [facility]. Assisted patient to the lobby via wheelchair. Patient picked up by daughter via private car.
== END 2022-01-29 16:30 | disposition home health service (06) | DRG 71 ==
PROVIDERS: ADMIT Physical Medicine & Rehabilitation Pain Medicine; ATTEND Physical Medicine & Rehabilitation Pain Medicine
DX: G93.41 Metabolic encephalopathy (principal); F02.82 Dementia in other diseases classified elsewhere, unspecified severity, with psychotic disturbance; N39.0 Urinary tract infection, site not specified; I50.22 Chronic systolic (congestive) heart failure; E11.9 Type 2 diabetes mellitus without complications; E78.5 Hyperlipidemia, unspecified; G20 Parkinson's disease; I25.10 Atherosclerotic heart disease of native coronary artery without angina pectoris; I10 Essential (primary) hypertension; Z95.1 Presence of aortocoronary bypass graft; I11.0 Hypertensive heart disease with heart failure; I25.5 Ischemic cardiomyopathy; I35.1 Nonrheumatic aortic (valve) insufficiency; S00.83XD Contusion of other part of head, subsequent encounter; T14.8XXD Other injury of unspecified body region, subsequent encounter; W18.30XD Fall on same level, unspecified, subsequent encounter; R53.1 Weakness; R29.6 Repeated falls; Z91.81 History of falling
CPT/HCPCS: 36415; 83735; 84100; 85025; 97535-GO-CO; A4663; J8499